=== PATIENT | male | born 1970 | race Caucasian/White ===

== ENCOUNTER 2016-10-07 19:35 | Emergency (ER) | payer MEDICARE ==
[2016-10-07 19:26] LABS: URINE SOURCE CLEAN CATCH
[2016-10-07 19:31] LABS: URINE APPEARANCE SL CLOUDY; URINE BILIRUBIN NEG (NEG); URINE BLOOD 3+ (NEG); URINE COLOR YELLOW; URINE GLUCOSE NEG (NORM); URINE KETONE NEG (NEG); URINE LEUKOCYTE ESTERASE 3+ (NEG); URINE NITRATE NEG (NEG); URINE PH 6.5 (5-8); URINE PROTEIN 1+ (NEG); URINE UROBILINOGEN 0.2 MG/DL (NORM)
[~2016-10-07 19:35] MED LIST: ALBUTEROL17 GM INH; ASPIRIN81 MG PO; BACTRIM DS TABL1 TAB PO; CELEXA10 MG; CIPRO PO; CLEOCIN150 M1 PO; COMBIVENT U/D3 M2 INH; COUMADIN; FLONASE; HCTZ; HCTZ PO; HYDROCHLOROTHIA25 MG PO; LEVAQUIN PO; LEVAQUIN750 MG PO; LISINOPRIL-HCTZ1 T15; LISINOPRIL20 MG PO; LORTAB 10 MG-3473 ML; LORTAB 10 MG-3473 ML PO; LORTAB 101 TAB 10/5 PO; LORTAB 5-325 M1 EACH PO; NORFLEX100 M1 PO; NORVASC; PEPCID PO; PREDNISONE PO; ROBAXIN500 MG PO; ROBITUSSIN PO; TESSALON PERLE100 M1 PO; TORADOL10 MG PO; TYLENOL/CODEINE1 TA1 PO; ZESTORETIC 20/11 TA1 PO; ZITHROMAX PO
[2016-10-07 19:38] LABS: MICRO INDICATED? YES
[2016-10-07 19:45] LABS: CULTURE INDICATED? YES; URINE AMORPHOUS SEDIMENT AMORP URATES; URINE BACTERIA 2+ (NEG); URINE MUCUS PRESENT; URINE RBC INNUM /[HPF] (0-2); URINE SQUAMOUS EPITHELIAL CELL FEW /[HPF]; URINE WBC 200-300 /[HPF] (0-5)
[2016-10-07] MEDS ORDERED: CIPRO PO (20:02)
[2016-10-07] MEDS ORDERED: PYRIDIUM100 MG PO (20:02)
[2016-10-09 16:39] LABS: CHLAMYDIA TRACH Not Detected (Not Detected); N GONOR Not Detected (Not Detected)
== END 2016-10-07 20:02 | disposition home or self-care (01) ==
LOC: SED 19:35
PROVIDERS: Physician Assistant
DX: N30.01 Acute cystitis with hematuria (principal); I10 Essential (primary) hypertension; Z88.0 Allergy status to penicillin; Z79.899 Other long term (current) drug therapy
CPT/HCPCS: 81003; 87086; 87088; 87186; 87491; 87591; 96372; 99283; J0696

== ENCOUNTER 2016-12-31 18:49 | Emergency (ER) | payer MEDICARE ==
[~2016-12-31] VITALS: Ht 182.9 cm; Wt 181.4 kg
--- NOTE | ~2016-12-31 | CT4 ---
[facility] A Service of [facility] RADIOLOGY TEXT RESULTS PATIENT: JACQUELYN LYONS LOCATION: SED : 66 UNIT #: [id number] AGE: [address]: Jossue Parker MD SEX: M ORDER DR: [id number] [place] [id number] E MR#: [id number] Acc #: [id number] NAME: JACQUELYN LYONS. : 1970 SEX: M STUDY DATE/TIME: 12/31/2016 19:35 UNIT: SED ROOM: STUDY DESCRIPTION: CT Abd and Pelv Wo Cont Attending Physician: Jossue Parker M.D. Ordering Physician: Jossue Parker M.D. Primary Care Physician: Franci Ordoñez M.D. MEDICAL IMAGING REPORT This report is preliminary unless electronic signature is present. EXAM CT abdomen and pelvis without contrast HISTORY Left flank pain and low back pain for [address] exam was performed with one or more of the following radiation dose reduction techniques: automatic exposure control, adjustment of mA and/or kV according to patient size, and iterative reconstruction. FINDINGS CT abdomen and pelvis was performed without contrast. CT ABDOMEN: Exam sensitivity is limited by respiratory motion. No hydronephrosis. Probable tiny nonobstructing stone mid-right kidney. Multifocal parenchymal scarring in both kidneys, greater in the posterior left mid kidney. No bowel dilatation. No ascites. CT PELVIS: Normal appendix. No free fluid. Urinary bladder is contracted. No bladder calculi are identified. No bowel dilatation. IMPRESSION 1. No acute findings. 2. Exam sensitivity limited by motion. 3. Probable tiny nonobstructing stone mid-right kidney. 4. Normal appendix. Dictated by... Vincent Diez M.D. THIS IS AN ELECTRONICALLY VERIFIED REPORT [facility] A Service of [facility] RADIOLOGY TEXT RESULTS PATIENT: JACQUELYN LYONS LOCATION: SED : 66 UNIT #: [id number] AGE: [address]: Jossue Parker MD SEX: M ORDER DR: Vincent Diez M.D. at 01/01/2017 2:22 PM JUAN PABLO/ramírez TD: 01/01/2017 12:48 JOB #: [id number] MEDICAL IMAGING REPORT Page 1 of 1
[~2016-12-31 18:49] MED LIST changes: +PYRIDIUM100 MG PO
[2016-12-31] MEDS ORDERED: ALDACTAZIDE PO (19:01)
[2016-12-31] MEDS ORDERED: WARFARIN SODIUM10 MG PO (19:01)
[2016-12-31] MEDS ORDERED: AMLODIPINE BESY10 MG PO (19:02)
[2016-12-31 19:19] LABS: URINE SOURCE CLEAN CATCH
[2016-12-31 19:21] LABS: URINE APPEARANCE CLEAR; URINE BILIRUBIN NEG (NEG); URINE BLOOD 1+ (NEG); URINE COLOR YELLOW; URINE GLUCOSE NEG (NORM); URINE KETONE NEG (NEG); URINE LEUKOCYTE ESTERASE NEG (NEG); URINE NITRATE NEG (NEG); URINE PROTEIN NEG (NEG); URINE UROBILINOGEN 0.2 MG/DL (NORM)
[2016-12-31 19:23] LABS: MICRO INDICATED? YES
[2016-12-31 19:25] LABS: CULTURE INDICATED? NO; URINE BACTERIA NEG (NEG); URINE MUCUS PRESENT; URINE SQUAMOUS EPITHELIAL CELL OCCAS /[HPF]; URINE WBC 0-2 /[HPF] (0-5)
[2016-12-31 19:25] LABS: BASOPHIL# 0.1 X10e3 (0-0.3); BASOPHIL% 1.3 % (0-2.5); DIFF IND NO; EOSINOPHIL# 0.1 X10e3 (0-0.7); EOSINOPHIL% 1.7 % (0.0-7.0); HEMATOCRIT 45.2 % (38.0-50.0); HEMOGLOBIN 15.3 gm/dL (13.0-16.0); LYMPHOCYTE% 25.1 % (17.0-45.0); MEAN CELL VOLUME 87.8 FL (83-96); MEAN CORPUSCULAR HEMOGLOBIN 29.7 PG (28-34); MEAN CORPUSCULAR HGB CONC 33.8 g/dL (30-36); MEAN PLATELET VOLUME 8.4 FL (6.5-11.5); MONOCYTE# 0.7 X10e3 (0-1.0); MONOCYTE% 8.9 % (3.0-12.0); NEUTROPHIL# 5.1 X10e3 (1.5-7.1); PLATELET COUNT 242 X10e3 (140-420); RED BLOOD COUNT 5.15 X10e (3.90-5.60); RED CELL DISTRIBUTION WIDTH 14.9 % (11.0-15.5); WHITE BLOOD COUNT 8.1 X10e3 (4.0-10.5)
[2016-12-31 19:41] LABS: ALBUMIN SERUM 4.1 g/dL (3.5-5.0); BILIRUBIN, DIRECT 0.1 mg/dL (0.0-0.2); BILIRUBIN,INDIRECT 0.7 mg/dL (0.0-0.9); BILIRUBIN,TOTAL 0.8 mg/dL (0.2-2.0); CALCIUM SERUM 8.7 mg/dL (8.4-10.2); CREATININE SERUM 0.8 mg/dL (0.6-1.4); GLOM FILT RATE Estimated 105.7 mL/min (>60); POTASSIUM 3.6 mmol/L (3.5-5.1); PROTEIN TOTAL SERUM 8.4 g/dL (6.0-8.3)
[2016-12-31 20:11] LABS: INR 2.3; PROTHROMBIN TIME (PATIENT) 25.7 SECONDS (9.5-12.4)
[2016-12-31 20:18] LABS: PARTIAL THROMBOPLASTIN TIME 33.1 SECONDS (25.6-38.1)
== END 2016-12-31 20:35 | disposition home or self-care (01) ==
LOC: SED 18:49
PROVIDERS: Emergency Medicine
DX: R10.9 Unspecified abdominal pain (principal); E66.01 Morbid (severe) obesity due to excess calories; Z68.43 Body mass index [BMI] 50.0-59.9, adult; I10 Essential (primary) hypertension; Z86.718 Personal history of other venous thrombosis and embolism; Z88.0 Allergy status to penicillin; Z79.01 Long term (current) use of anticoagulants; Z79.899 Other long term (current) drug therapy
CPT/HCPCS: 36415; 74176; 80048; 80076; 81003; 83690; 85025; 85610; 85730; 96374; 99284; J1885

== ENCOUNTER 2017-02-04 17:29 | Emergency (ER) | payer MEDICARE ==
[~2017-02-04] VITALS: Ht 182.9 cm; Wt 181.4 kg
[~2017-02-04 17:29] MED LIST changes: +ALDACTAZIDE PO; +AMLODIPINE BESY10 MG PO; +WARFARIN SODIUM10 MG PO
[2017-02-04] MEDS ORDERED: HYDROCODON-ACE1 EA11 (17:42)
[2017-02-04 17:47] LABS: URINE APPEARANCE SL CLOUDY; URINE BILIRUBIN NEG (NEG); URINE BLOOD 3+ (NEG); URINE COLOR YELLOW; URINE GLUCOSE NEG (NORM); URINE KETONE 1+ (NEG); URINE LEUKOCYTE ESTERASE 3+ (NEG); URINE NITRATE POS (NEG); URINE PROTEIN 1+ (NEG); URINE SOURCE CLEAN CATCH; URINE SPECIFIC GRAVITY 1.015 (1.003-1.035); URINE UROBILINOGEN 0.2 MG/DL (NORM)
[2017-02-04 17:49] LABS: MICRO INDICATED? YES
[2017-02-04 17:58] LABS: URINE BACTERIA 1+ (NEG); URINE SQUAMOUS EPITHELIAL CELL FEW /[HPF]; URINE WBC 25-50 /[HPF] (0-5)
[2017-02-07 05:56] LABS: CHLAMYDIA TRACH Not Detected (Not Detected); N GONOR Not Detected (Not Detected)
== END 2017-02-04 18:56 | disposition home or self-care (01) ==
LOC: SED 17:29 → CED 17:29 → SED 17:50
PROVIDERS: Physician Assistant
DX: N39.0 Urinary tract infection, site not specified (principal); I10 Essential (primary) hypertension; Z79.899 Other long term (current) drug therapy; Z79.01 Long term (current) use of anticoagulants; Z88.0 Allergy status to penicillin
CPT/HCPCS: 81003; 87491; 87591; 99283

== ENCOUNTER 2017-02-14 21:02 | Emergency (ER) | payer MEDICARE ==
[~2017-02-14] VITALS: Ht 182.9 cm; Wt 181.4 kg
[~2017-02-14 21:02] MED LIST changes: +HYDROCODON-ACE1 EA11
[2017-02-14 23:01] LABS: URINE APPEARANCE SL CLOUDY; URINE BILIRUBIN NEG (NEG); URINE BLOOD 3+ (NEG); URINE COLOR YELLOW; URINE GLUCOSE NEG (NORM); URINE KETONE NEG (NEG); URINE LEUKOCYTE ESTERASE 2+ (NEG); URINE NITRATE NEG (NEG); URINE PH 5.5 (5-8); URINE PROTEIN 1+ (NEG); URINE SOURCE CLEAN CATCH; URINE SPECIFIC GRAVITY 1.025 (1.003-1.035); URINE UROBILINOGEN 0.2 MG/DL (NORM)
[2017-02-14 23:06] LABS: MICRO INDICATED? YES
[2017-02-14 23:08] LABS: URINE BACTERIA 1+ (NEG); URINE RBC 25-50 /[HPF] (0-2); URINE SQUAMOUS EPITHELIAL CELL OCCAS /[HPF]; URINE WBC 25-50 /[HPF] (0-5)
== END 2017-02-15 00:44 | disposition home or self-care (01) ==
LOC: SED 21:02
DX: R31.9 Hematuria, unspecified (principal); I10 Essential (primary) hypertension; Z86.718 Personal history of other venous thrombosis and embolism; Z86.711 Personal history of pulmonary embolism
CPT/HCPCS: 81003; 99284